=== PATIENT | female | born 2000 | race American Indian/Alaskan Native ===

== ENCOUNTER 2021-03-14 16:13 | Emergency (ER) | payer MEDICAID ==
[2021-03-14 18:09] VITALS: BP 103/66
--- NOTE | 2021-03-14 18:26 | Emergency Department Report ---
ED General Adult HPI - General Chief complaint: Upper Respiratory Infection Stated complaint: RUNNY NOSE, COUGH, CANNOT HEAR OUT OF LEFT EAR Time Seen by Provider: 03/14/21 18:22 Source: patient Mode of arrival: Ambulatory Limitations: No Limitations - History of Present Illness Initial comments: 20-year-old female patient presents to the emergency department with complaints of nasal congestion, sore throat, nonproductive cough, and left ear pain for 1 week. No known sick contacts. No current steroid or antibiotic use. No recent travel. Denies fever, chills, wheezing, shortness of breath, neck stiffness, rash, vomiting, diarrhea. Denies all other complaints at this time. - Related Data Previous Rx's Medication Instructions Recorded Last Taken Type Fluticasone [Flonase] 1 spray NS QDAY #1 bottle 03/14/21 Unknown Rx Allergies Allergy/AdvReac Type Severity Reaction Status Date / Time No Known Allergies Allergy Unverified 03/14/21 18:03 ED Review of Systems ROS: Stated complaint: RUNNY NOSE, COUGH, CANNOT HEAR OUT OF LEFT EAR Other details as noted in HPI Other: GENERAL: Negative for fever. ENT: Positive for sore throat, ear pain, and nasal congestion. CARDIOVASCULAR: Negative for chest pain. PULMONARY: Positive for cough. GASTROINTESTINAL: Negative for abdominal pain. MUSCULOSKELETAL: Negative for back pain. NEUROLOGICAL: Negative for headache. INTEGUMENTARY: Negative for rash. ED Past Medical Hx - Past Medical History Previous Medical History?: No - Surgical History Past Surgical History?: No - Social History Smoking Status: Never Smoker Substance Use Type: Alcohol - Medications Home Medications: Home Medications Medication Instructions Recorded Confirmed Last Taken Type Fluticasone [Flonase] 1 spray NS QDAY #1 bottle 03/14/21 Unknown Rx ED Physical Exam - General Limitations: No Limitations - Other Other exam information: General: Awake and alert. No acute distress. Head: Atraumatic, normocephalic. Eyes: EOMI. Pupils are equal and round. Normal sclera and conjunctiva. ENT: Oral mucosa is moist. Normal pharyngeal exam. Normal otoscopic exam. Nasal congestion noted. Neck: Supple. No lymphadenopathy. Pulmonary: No respiratory distress. Clear to auscultation bilaterally. Cardiac: Regular rate and rhythm. Pulses are palpable and equal bilaterally. No lower extremity cyanosis or edema. Skin: Warm and dry. No rashes. Abdomen: Soft, non-tender, non-protuberant. No guarding, rigidity, or rebound. Bowel sounds are normal. No organomegaly or masses noted. Back: Normal alignment. No CVA tenderness. Extremities: Symmetrical. Full range of motion intact. Neurological: Alert and oriented, appropriately interactive, no focal deficits. Psych: Cooperative. Appropriate mood and affect. Speech is evenly metered. Thoughts are logically construed. ED Course Vital Signs 03/14/21 18:03 Temperature 98.4 F Pulse Rate 67 Respiratory 20 Rate Blood Pressure 103/66 O2 Sat by Pulse 98 Oximetry ED Medical Decision Making - Medical Decision Making Patient presents to the emergency department with complaints of cold symptoms. She is afebrile, hemodynamically stable, well-hydrated. No clinical evidence to suggest bacterial infection warranting further diagnostic work-up on an emergent basis at this time. Patient will be discharged home with appropriate symptomatic treatment and referred to primary care provider for close outpatient follow-up. Patient expressed understanding and is agreeable to plan of care. Disease transmission precautions discussed. Strict return precautions provided. History, exam, diagnostic testing, and current condition do not suggest worrisome pathology to warrant further testing, continued ED treatment, admission, or surgical evaluation at this point. Given the low probability of a significant medical illness, it would be more likely to result in harm than benefit to perform further testing at this stage. Discussed findings, presumptive diagnosis, need for follow-up and specific signs/symptoms that should prompt immediate return to the emergency department. Instructions were explained in detail to the patient in addition to giving written discharge information. Patient expressed understanding and was given the opportunity to ask questions, all of which were satisfactorily answered prior to discharge home. Critical care attestation.: If time is entered above; I have spent that time in minutes in the direct care of this critically ill patient, excluding procedure time. ED Disposition Clinical Impression: Acute nasopharyngitis Disposition: DC-01 TO HOME OR SELFCARE Is pt being admited?: No Does the pt Need Aspirin: No Condition: Stable Instructions: Fluticasone nasal spray Additional Instructions: Take Tylenol every 4 hours and Motrin every 8 hours as needed for pain. Use Flonase as directed. Exposure to warm humidified air may help relieve nasal congestion. Honey is an excellent natural cough suppressant. Use [id number] cough/cold remedies as directed. Rest. Drink plenty fluids. Wash hands frequently to prevent disease transmission. Do not share food or drinks with others. Follow-up with primary care provider this week. Call Tuesday to schedule an appointment. See referral information below. Return to the emergency department immediately for new or worsening symptoms. Prescriptions: Fluticasone [Flonase] 1 spray NS QDAY #1 bottle Referrals: RE TORRES MD [Staff Physician] - 3-5 Days [facility] [Outside] - 3-5 Days [facility] [Outside] - 3-5 Days [facility] [Outside] - 3-5 Days [facility] [Provider Group] - 3-5 Days Time of Disposition: 18:26
== END 2021-03-14 18:40 | disposition home or self-care (01) ==
LOC: ED 16:13
DX: J00 Acute nasopharyngitis [common cold] (principal); Z79.899 Other long term (current) drug therapy
CPT/HCPCS: 99282

== ENCOUNTER 2021-12-14 17:32 | Emergency (ER) | payer MEDICAID ==
[2021-12-14 17:44] VITALS: BP 114/60
== END 2021-12-14 21:52 | disposition left against medical advice (07) ==
LOC: ED 17:32
DX: G43.909 Migraine, unspecified, not intractable, without status migrainosus (principal); Z53.21 Procedure and treatment not carried out due to patient leaving prior to being seen by health care provider